=== PATIENT | male | born 1935 | race Caucasian/White ===

== ENCOUNTER 2016-08-12 08:00 | Outpatient (CLI) | payer MEDICARE | END 2016-08-12 08:01 | disposition home or self-care (01) | DX: R06.09 Other forms of dyspnea (principal); I10 Essential (primary) hypertension; J44.9 Chronic obstructive pulmonary disease, unspecified; E78.5 Hyperlipidemia, unspecified ==

== ENCOUNTER 2016-12-10 11:28 | Outpatient (CLI) | payer MEDICARE | END 2016-12-10 11:29 | disposition home or self-care (01) | DX: K62.5 Hemorrhage of anus and rectum (principal) ==

== ENCOUNTER 2017-01-30 15:15 | Outpatient (CLI) | payer MEDICARE ==
--- NOTE | 2017-02-01 20:47 | CONSULTATION NOTE ---
DATE OF CONSULTATION: 01/30/2017 00:00:00 REQUESTING PROVIDER: Lamberto Marcum MD. TIME OF VISIT: [id number]. TOPIC: Initial palliative care consult. Thank you, Dr. Marcum, for asking the palliative care consult service to be involved in the care of your patient. I am asked to provide support for goals of care and symptom management. History obtained from medical records, as well as the patient. BRIEF HISTORY OF PRESENT ILLNESS: This is a charles 81-year-old gentleman who presents with advanced end-stage COPD. He is breathless with any kind of activity or exertion and at times breathless at rest. This is exacerbated by his anxiety and fearfulness regarding his breathlessness. He is on 4 liters at 99%, but with any kind of activity he does desat ambulating about 10-15 feet down into the low 80s. This causes him much distress, though he is not more symptomatic than other increased respiratory effort. He does not get dizzy, faint, or confused with this decrease and if after he walked about 45-60 seconds , only took him about 3 minutes to recover. The patient does recognize he has advanced disease. He is quite anxious that he is looking at limited life expectancy and is hopeful that with palliative care, we can find some tools for him to improve his current quality of life. He also presents with about 2-3 weeks of mid thoracic pain, more on the left side that does increase with deep inhalation. He denies any pain at time of visit. He denies any falls or trauma that might have resulted in thoracic compression fracture, though this does appear somewhat suspicious. Currently, at the time of visit, his pain is a 0/ 10. His other presenting symptom has been intermittent constipation. In December, he did present to [facility] with gross rectal bleeding. With followup with the surgeon, he was found to have internal and external hemorrhoids and severe sigmoid diverticulitis. He is currently managing his constipation much better without any further signs or symptoms of bleeding with daily use of MiraLax. He also presents with other comorbidities of CHF, hypertension, hyperlipidemia, GERD, pulmonary hypertension, was shown in November to have some interstitial lung disease on CT, and ejection fraction of 60-65%. PAST MEDICAL HISTORY: Includes 4 hernias with hernia repair, AAA with repair in the last few years. He was recently worked up with Cardiology with a negative outcome. He has had in the past a left leg DVT, prostate cancer with a prostatectomy with residual incontinence, and he has a thoracic ascending aneurysm, which is currently stable. He also has currently a hiatal hernia. SYMPTOM BURDEN: Does include the intermittent pain, though 0/10 currently. He does get fatigued and tired with his breathlessness. He denies any nausea. His appetite has been good. He has had no weight loss. He does have some intermittent depressive symptoms, but presents more with high anxiety and can recognize this and perceives his quality of life as quite poor. ALLERGIES: INCLUDE HEPARIN. CURRENT MEDICATION LIST Includes 1. Albuterol sulfate 0.083% nebulizer q.4h. p.r.n. wheezing. 2. Lisinopril 5 mg daily. 3. Stiolto Respimat 2.5/2.5 mcg actuation inhale aerosol, inhale 2 puffs by mouth daily. 4. QVAR 80 mcg inhale 1 actuation twice daily. 5. Aspirin 81 mg daily. 6. Prednisone 10 mg daily. 7. Lasix 20 mg daily. 8. Recently finished his Zithromax for sinus symptoms. 9. Fluticasone propionate 50 mcg/ACT 1 spray each nostril twice daily. 10. Aspirin 81 mg daily. 11. Aleve 220 mg intermittently for thoracic back pain. 12. Multivitamin daily. 13. Prilosec meio-bkw-gdvsegk 20 mg daily. 14. Saline nose spray. CODE STATUS: THE PATIENT DOES NOT HAVE ANY ADVANCED CARE DIRECTIVES. HE WOULD WANT YU, HIS DAUGHTER, TO BE THE MEDICAL DPOA AFTER HIS , SHERRY. I DID INTRODUCE THE POLST. HE DOES EXPRESS WISHES FOR DO NOT ATTEMPT RESUSCITATION , BUT THIS FORM WAS JUST INTRODUCED AND WE WILL FINISH THIS AT OUR NEXT VISIT. BRIEF SOCIAL HISTORY: The patient lives with his , Sherry. They live in a retired community. The daughter provides him quite a bit of support, as well as their neighbors. 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 He did have environmental exposure including asbestos. His , herself, has some health problems. They are quite devoted to each other, have been over 42 years, and have a blended family with 8 daughters and 2 sons. He is not connected to any spiritual community at this point in time. He does express sadness having given up many activities that bring him lorene such as golfing, bowling, and most recently grocery shopping. He still likes to go to the [employer], this is becoming more difficult. Marital status: Currently to Sherry for 42 years. His use of alcohol is rare, a glass of wine. Use of tobacco: Quit smoking in 2011. FAMILY HISTORY: Includes his father of a heart attack at 70. Mother of CHF at age 73 and a brother in his 50s of a heart attack. PERFORMANCE STATUS: The patient has experienced a significant decline in functional status. This is attributed to his dyspnea. He was able to go shopping about 1 month ago in [employer]. Six months ago, he was able to ambulate around with a walker. Now, he is mostly home bound. He occasionally drives, but is unable to tolerate being out for long periods of time because of breathlessness and remains essentially homebound. I would put his palliative care performance status at 70%. REVIEW OF SYSTEMS CONSTITUTIONAL: Overall, the patient does present with feeling fatigued and depressed, as well as frustrated by his current situation. EYES: He does wears glasses. ENT: He has some mild hearing loss. CARDIOVASCULAR: Denies chest pain or swelling in his feet. RESPIRATORY: As noted above. Does feel often he cannot get enough air. He wears his oxygen at 4 liters, occasionally raises it when he gets more short of breath. He has been oxygen dependent for several years now. GASTROINTESTINAL: History of constipation. Currently, his Miralax is giving him relief. He has had no overt signs or symptoms of bleeding. GENITOURINARY: He has had some incontinence since his prostate surgery at age 63. He does have some urgency, is up a couple of times a night. MUSCULOSKELETAL: He overall has some weakness, some mild osteoarthritis. SKIN: Denies problems. NEUROLOGIC: Denies headache or dizziness, numbness or tingling. PSYCHIATRIC: Reports depression and anxiety. ENDOCRINE: No history of diabetes or hypothyroidism. HEMATOLOGIC/IMMUNOLOGIC: Recently treated for a sinus infection. Has not been in and out frequently with pneumonia or exacerbations. His last counts noted in the chart in 12/2016, his WBC was 9.2, RBC 4.1, hemoglobin 13.2, and hematocrit of 41. His protein is 7.3. Liver enzymes were normal. PHYSICAL EXAMINATION GENERAL APPEARANCE: He is making good eye contact. His voice is modulated, he does appear quite anxious. EYES: Normal on inspection. ENT: Mucous membranes are moist, no signs or symptoms of candidiasis. NECK: Trachea midline. No JVD. RESPIRATORY: His breath sounds are very diminished throughout, particularly in the bases, left greater than right. CARDIOVASCULAR: He does have regular rate and rhythm 105, temperature 98.6. O2 saturation is 99% on room air, blood pressure 138/78. His weight is 180. ABDOMEN: Soft. Bowel tones normal. SKIN: Color good. EXTREMITIES: No lower extremity edema noted. PALLIATIVE CARE DISCUSSION: Who is present, myself and his , Sherry. We did discuss his current understanding of his illness is he is deteriorating pretty quickly. He is quite anxious about this. He understands there is not much more to interfere with his disease process and is hoping to be able to "stay around for a while." His also has a serious illness of neurologic origin and are trying to be supportive of each other. Currently does not have any advanced directive. He is hopeful to be able to regain some functional status and activity tolerance, though recognizes that this is somewhat limited. His strengths come from his and family, has some social support, but family is somewhat scattered. IMPRESSION: This is an 81-year-old gentleman who presents with advanced chronic obstructive pulmonary disease with high symptom burden including disabling dyspnea, is resulting in decreased activity tolerance and the patient's homebound status, as well as high anxiety and depression. The patient most likely has a limited life prognosis and is quite anxious about this. Will continue to follow for further decline. His goal is to improve and further define his advanced care directives. RECOMMENDATIONS/COUNSELING DONE 1. Dyspnea. This is multifactorial in origin. It is impacted by his anxiety, as well as his underlying disease process. He is maximized out on his pulmonary medications. I did introduce the use of morphine as a tool to manage, particularly prior to activity, his respiratory distress. Counseling and teaching were done with both the patient and , starting with opiate naive dose, which should be 0.25 mL to 5 mg every 4 hours, instructed to use prior to activity and to be able to better tolerate activity. Reviewed side effects including sedation and constipation. Instructed to increase his bowel medications as needed and counseling regarding safety. Did provide 1 mL syringes , demonstrated the amount, a prescription was provided for 30 mL. The patient was encouraged to use it before distress to be able to monitor it results given his high anxiety. The other thing we did, was I did provide him some cognitive behavioral therapy. I had him take off his oxygen and sit with me and relax. His oxygen only dropped to about 90. He did not feel confused, dizzy, or distressed. I tried to help him reframe, that watching the numbers, in particularly with his activity, dropping that he does have time if he just paces himself, his body will recover and that he has probably adapted to this long-term. He gets really quite anxious and distressed when he is changing bottles or his oxygen cuts off. I was able to give him some feedback regarding helping him manage his anxiety around this. In fact, on room air at rest, he only dropped to about 95% after 2 minutes and tolerated it fine with any kind of activity, even on oxygen, though he does desat quite quickly. 2. Constipation. The patient had initiated 1/2 capful of MiraLax daily with good results. Instructions on MiraLax for softening "the mush" and Senna. Was instructed to pick out hand some Senna concentrate 8.6 mg and take 1-2 tabs if he is experiencing constipation for the "push." We did curriculum counselor them for titration of bowel medications and the need to have a regular soft bowel movement on a regular basis and morphine can impact this. 3. Anxiety, multifactorial in origin, certainly exacerbated by his dyspnea. The patient is seriously ill, most likely would meet [facility] criteria currently, though this is in the context of his goals. I will evaluate over the next few visits as far as anticipatory guidance and counseling was done regarding the continuum of care including hospice and the role of palliative care in an attempt to address and allay some anxiety. 4. Advanced care planning. The patient does need to complete a POLST, as well as medical DPOA. I did introduce the POLST and the role of this. He did express wishes to be a DO NOT ATTEMPT RESUSCITATION AND LIMITED INTERVENTIONS. His daughter, Yu, though is very much involved in their care. He will discuss this with her as well. I also provided 5 Wishes to be able to use as a conversation piece to make sure they have covered all of the things that need to be decided, as well as a durable power of medical chief security officer to be able to put this on record. TIME SPENT: 75 minutes with greater than 50% of this done in counseling regarding management of dyspnea, constipation, advanced care planning. Will continue to monitor. 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 ADDENDUM: Call to patient, had tried morphine at 0.25 ml, had helped with back pain, did not notice much improvement in exercise tolerance or breathlessness. No sedation, confusion, or change in balance. Will try at 0.5 ml to see if better control Inst. to call with any questions, concerns, or further inst. needed. Will have PC RN follow up. JOB #: [id number] EXT JOB #:[id number] MALIKA
== END 2017-01-30 15:16 | disposition home or self-care (01) ==
LOC: PC 15:15
PROVIDERS: ATTEND Nurse Practitioner Adult Health
DX: Z51.5 Encounter for palliative care (principal); R06.00 Dyspnea, unspecified; K59.00 Constipation, unspecified; F41.9 Anxiety disorder, unspecified; J44.9 Chronic obstructive pulmonary disease, unspecified; K64.4 Residual hemorrhoidal skin tags; K64.8 Other hemorrhoids; I50.9 Heart failure, unspecified; I10 Essential (primary) hypertension; E78.5 Hyperlipidemia, unspecified; K21.9 Gastro-esophageal reflux disease without esophagitis; I27.2 Other secondary pulmonary hypertension; Z86.718 Personal history of other venous thrombosis and embolism; Z85.46 Personal history of malignant neoplasm of prostate; R32 Unspecified urinary incontinence; I71.2 Thoracic aortic aneurysm, without rupture; K44.9 Diaphragmatic hernia without obstruction or gangrene; Z79.82 Long term (current) use of aspirin; Z79.52 Long term (current) use of systemic steroids; Z79.51 Long term (current) use of inhaled steroids; Z77.090 Contact with and (suspected) exposure to asbestos; Z87.891 Personal history of nicotine dependence; F32.9 Major depressive disorder, single episode, unspecified; R53.1 Weakness
CPT/HCPCS: 99345

== ENCOUNTER 2017-02-18 11:30 | Outpatient (CLI) | payer MEDICARE | END 2017-02-18 11:31 | disposition home or self-care (01) | LOC: PC 11:30 | PROVIDERS: ATTEND Nurse Practitioner Adult Health | DX: Z51.5 Encounter for palliative care (principal); J18.9 Pneumonia, unspecified organism; R06.00 Dyspnea, unspecified; K59.00 Constipation, unspecified; Z79.891 Long term (current) use of opiate analgesic; J44.9 Chronic obstructive pulmonary disease, unspecified; Z99.81 Dependence on supplemental oxygen; R05 Cough; Z79.51 Long term (current) use of inhaled steroids; Z79.52 Long term (current) use of systemic steroids; Z79.82 Long term (current) use of aspirin; R53.1 Weakness; R07.81 Pleurodynia; R35.0 Frequency of micturition; R32 Unspecified urinary incontinence; F32.9 Major depressive disorder, single episode, unspecified; F41.9 Anxiety disorder, unspecified | CPT/HCPCS: 99350 ==

== ENCOUNTER 2017-02-25 16:57 | Outpatient (CLI) | payer MEDICARE ==
--- NOTE | 2017-02-25 20:50 | PROVIDER PROGRESS NOTE ---
Palliative Care Follow Up - Referral Referring Provider: Dr. Marcum Time of Visit: Advanced COPD Referral setting: Home (It is a taxing and considerable effort for the patient to leave the home secondary to dyspnea.) - Information Sources History obtained from: Patient, Family Exam limitations: No limitations - History of Present Illness Update Brief HPI Update: This is a charles 82 year old man with endstage COPD, who had worsening pulmonary function, increase dypsnea, new abnormal lung sounds with increase mucous production and severe fatigue. Started on levoflaxin, had severe myalgias , had taken two doses, had also increased his prednisone to 30 mg daily. Has recovered from the side effects of AB, and has continued to feel better with less mucous, benefiting from increased Prednisone, and fatigue better. Using the morphine 20 mg/ml 0.4 ml 4 x a day with better relief of pain, anxiety and dyspnea. Using albuterol neb 3 x a day. Please see complete history 01/30. He is pleased with the improvement, a big family reunion is planned this weekend with 6 daughters! Very hopeful will not get too overtired and enjoy the activities. Social History - Living Situation Living arrangement: At home Living Situation: With spouse/s.o. (limited as well secondary to health issues) Medications/Allergies - Medications Home Medications: Ambulatory Orders Medication Instructions Recorded Confirmed Albuterol 3 ml NEB Q4HR PRN 02/06/17 02/18/17 Aspirin [Adult Low Dose Aspirin EC] 81 mg PO DAILY 02/06/17 02/18/17 Beclomethasone 80 Mcg [Qvar 80] 1 puffs BID 02/06/17 02/18/17 Fluticasone Propionate [Flovent 50 mcg IH BID 02/06/17 02/18/17 Diskus] Furosemide [Lasix] 20 mg PO DAILY 02/06/17 02/18/17 Lisinopril 5 mg PO DAILY 02/06/17 02/18/17 Morphine Sulfate [Morphine Sulf 0.25 - 0.5 ml PO Q4HR PRN 02/06/17 02/18/17 Oral (Roxanol)] Multivitamin [Multiple Vitamins] 1 each PO DAILY 02/06/17 02/18/17 Omeprazole [PriLOSEC] 20 mg PO DAILY 02/06/17 02/18/17 Polyethylene Glycol 3350 [Miralax] 17 gm PO DAILY PRN 02/06/17 02/18/17 Prednisone 30 mg PO DAILY 02/06/17 02/18/17 Sennosides [Senna] 1 - 2 tab PO DAILY PRN 02/06/17 02/18/17 Sodium Chloride [Saline Mist] 1 spray ADAIR PRN PRN 02/06/17 02/25/17 Tiotropium Br/Olodaterol HCl 2 puffs PO DAILY 02/06/17 02/25/17 [Stiolto Respimat Inhal [place]] - Allergies Allergies/Adverse Reactions: Allergies Allergy/AdvReac Type Severity Reaction Status Date / Time heparin Allergy Unknown Unknown Verified 02/18/17 18:23 levofloxacin AdvReac Severe Cramps Verified 02/25/17 21:12 Review of Systems - Constitutional Constitutional: reports: Fatigue, Weakness - Eyes Eyes: reports: Corrective lenses. denies: Blurred vision - Ears, Nose & Throat Ears, Nose & Throat: reports: Hearing loss, Hearing aids, Nasal congestion ( improved) - Cardiovascular Cariovascular: reports: Exertional dyspnea, Decr. exercise tolerance. denies: Chest pain - Respiratory Respiratory: reports: Cough, Sputum production (less mucous), SOB at rest, SOB with exertion, Pleuritic pain (improved with morphine) - Gastrointestinal Gastrointestinal: reports: Nausea, Reflux/heartburn. denies: Constipation - Genitourinary Genitourinary: reports: Frequency. denies: Dysuria - Musculoskeletal Musculoskeletal: reports: Muscle pain (had severe episode with levo, now improved), Muscle weakness - Integumentary Integumentary: reports: Dryness - Neurological Neurological: reports: General weakness - Psychiatric Psychiatric: reports: Anxiety - Endocrine Endocrine: reports: Other (no issues) - Hematologic/Lymphatic Hematologic/Lymphatic: reports: Anemia, Bruising - All Other Systems All Other Systems: reports: Reviewed and negative Physical Examination - Vital Signs Temperature: 97.5 C Pulse Rate: 96 Respiratory Rate: 24 O2 Saturation: 95 Blood Pressure: 132/72 - Physical Exam General Appearance: positive: Alert Eyes Bilateral: positive: Normal inspection ENT: positive: No signs of dehydration Neck: positive: Trachea midline. negative: Lymphadenopathy (R), Lymphadenopathy (L) Respiratory: positive: Other (severely diminished throughout). negative: Wheezes, Rales, Rhonchi Cardiovascular: positive: Regular rate & rhythm Abdomen: positive: No distention Skin: positive: Dryness Extremities: positive: Pedal edema (slight pedal edema left leg) Neurologic/Psychiatric: positive: Oriented x3 Palliative Care - POLST Patient has POLST: Yes POLST Status: DNR, Comfort Measures Pain: Pain improved, Location (right thoracic area), Severity (controlled) Drowsiness: None Nausea: None Anxiety: Mild (1-3) Dyspnea: Moderate (4-6) Anorexia: None Insomnia: Sleeps well Constipation: Yes, Opoid induced, Managed Feelings of wellbeing/Perceived Quality of Life: Improved Performance Status: Patient still limited, though is feeling would like to try driving again. does not drive, he usually just does driving and sits in car, his goal is to be able to get out of house. Tolerates any activity poorly, only able to walk about 10-15 feet before hypoxic and breathless. Feeling less distress with the MS - Palliative Care Discussion: Surrogate decision maker [Laura his , DPOA paperwork copy for records. POLST rewritten so no cross throughs. Posted on refridgerator, still satisfied with goals and choices. Very much encouraged is feeling better, aware of seriousness of condition, hoping for more time, family reunion planned. Impression and Recommendations - Palliative Care Impression: This is a charles and anxious 82 year old gentleman with endstage COPD, symptom burden improving. Responding well to the increased Prednisone, will leave at current dosing to be able to enjoy family and company. Pain controlled, and starting to be able to tolerate a little bit more activity though limited. Recommendations/Counseling Done: 1. Community Acquired Pneumonia vs exacerbation, responded even to the two doses of levaquin with decreased mucous, did not develop fever, had discussed changing out AB but declined. Responding well to increased Prednisone. Will continue until next visit in 2 weeks, then decrease slowly by 5 mg a week to baseline 10 mg. Weighing benefits and burdens, patient very much wants to be able to be "up" with family visiting and is hopeful can maintain even in the short term. Has improved appetite as well. 2. Pleuritic pain, currently controlled with MS. 3. Constipation, titrating medications in response appropriately. No further hemmorhoidal pain or bleeding. 4. Dyspnea. Patient anxious to drive, counseling on increasing activity slowly, trial car trip with daughters this weekend. 4. Advanced Care Planning. DPOA/POLST completed. Aware very fragile, currently improving, will transition to hospice if declines, but feeling much better and hopeful curently. Time Spent: 45 minutes with greater than 50% done in counseling on symptom management, pacing of activities, safety issues with opioid medication disposal.
== END 2017-02-25 16:58 | disposition home or self-care (01) ==
LOC: PC 16:57
PROVIDERS: ATTEND Nurse Practitioner Adult Health
DX: Z51.5 Encounter for palliative care (principal); R07.81 Pleurodynia; K59.00 Constipation, unspecified; Z79.891 Long term (current) use of opiate analgesic; R06.00 Dyspnea, unspecified; R53.83 Other fatigue; Z79.52 Long term (current) use of systemic steroids; Z79.82 Long term (current) use of aspirin; Z79.51 Long term (current) use of inhaled steroids; R53.1 Weakness; R05 Cough; F41.9 Anxiety disorder, unspecified; R60.9 Edema, unspecified; Z66 Do not resuscitate
CPT/HCPCS: 99349

== ENCOUNTER 2017-03-10 13:21 | Outpatient (CLI) | payer MEDICARE ==
--- NOTE | 2017-03-10 13:31 | PROVIDER PROGRESS NOTE ---
Palliative Care Follow Up - Referral Referring Provider: Dr Marcum Time of Visit: 11:00 Referral setting: Home (It is a taxing and considerable effort for the patient to leave home secondary to significant dyspnea.) Referral Reason: Advanced COPD - Information Sources History obtained from: Patient, Family Exam limitations: No limitations - History of Present Illness Update Brief HPI Update: This is a charles 82-year-old man with advanced, end-stage COPD. He is breathless with any kind of activity or exertion and at times breathless at rest , and he experiences anxiety regarding his breathlessness reduced functionality. He states he is not doing well today, explaining he is breathless just from getting up from his armchair and moving into the kitchen for this visit. And then he admits that actually his breathlessness has been stable, and in fact he has been sleeping very well for the past week, which he attributes to the morphine. He also noted he is no longer producing phlegm. He has been using morphine 0.4ml four times daily, and along with the 30mg of prednisone its been stabilizing his breathlessness. It had been tentatively planned to start titrating down the prednisone by 5mg weekly until it reached 10mg, but the patient does not want to do so at this time, he feels anxious at the prospect of decreasing it. We agreed to revisit that at the next visit. His large family (8 sons, 2 daughters with their children and grandchildren) were all here recently and had a wonderful time. The patient enjoyed a big family birthday democrat and was spoiled with TLC by pedicures and other fun activities. He did not end up being driven around by any of his children as had been discussed, but he did drive once himself, taking his on an errand. It was quite fatiguing and required that he rest on the way to the garage, in the garage, and then again once he was back home, from the garage back in the house. During this visit O2 sats are 95% while at rest on O2, but dropped to 76% after walking 15 feet to the sink and preparing coffee. It took 2.5 minutes for him to recuperate. Last week he had no bowel movement for 3 days, and spoke with RN in this office. We increased Miralax to 1 capful daily, increased Senna to 2 tabs BID, and instructed him to use Dulcolax suppository once. He is back to having a soft BM daily and notices he has more gas. Social History - Living Situation Living arrangement: At home Living Situation: With spouse/s.o. (Large extended family living in other states ; one daughter lives nearby) Medications/Allergies - Medications Home Medications: Ambulatory Orders Medication Instructions Recorded Confirmed Albuterol 3 ml NEB Q4HR PRN 02/06/17 03/10/17 Aspirin [Adult Low Dose Aspirin EC] 81 mg PO DAILY 02/06/17 03/10/17 Beclomethasone 80 Mcg [Qvar 80] 1 puffs BID 02/06/17 03/10/17 Fluticasone Propionate [Flovent 50 mcg IH BID 02/06/17 03/10/17 Diskus] Furosemide [Lasix] 20 mg PO DAILY 02/06/17 03/10/17 Lisinopril 5 mg PO DAILY 02/06/17 03/10/17 Morphine Sulfate [Morphine Sulf 0.25 - 0.5 ml PO Q4HR PRN 02/06/17 03/10/17 Oral (Roxanol)] Multivitamin [Multiple Vitamins] 1 each PO DAILY 02/06/17 03/10/17 Omeprazole [PriLOSEC] 20 mg PO DAILY 02/06/17 03/10/17 Polyethylene Glycol 3350 [Miralax] 17 gm PO DAILY PRN 02/06/17 03/10/17 Prednisone 30 mg PO DAILY 02/06/17 03/10/17 Sennosides [Senna] 1 - 2 tab PO PRN MDD Up to BID 02/06/17 02/18/17 Sodium Chloride [Saline Mist] 1 spray ADAIR PRN PRN 02/06/17 03/10/17 Tiotropium Br/Olodaterol HCl 2 puffs PO DAILY 02/06/17 03/10/17 [Stiolto Respimat Inhal [place]] - Allergies Allergies/Adverse Reactions: Allergies Allergy/AdvReac Type Severity Reaction Status Date / Time heparin Allergy Unknown Unknown Verified 02/18/17 18:23 levofloxacin AdvReac Severe Cramps Verified 02/25/17 21:12 Review of Systems - Constitutional Constitutional: denies: Fever, Chills, Poor appetite - Cardiovascular Cariovascular: denies: Chest pain - Respiratory Respiratory: reports: SOB with exertion. denies: Sputum production (No more phlegm) - Gastrointestinal Gastrointestinal: reports: Constipation (No BM last week x 3 days, so increased bowel meds. Now soft having BMs daily) - Genitourinary Genitourinary: denies: Dysuria, Frequency, Urgency - Psychiatric Psychiatric: reports: Anxiety (mild) Physical Examination - Vital Signs Temperature: 97.3 C Pulse Rate: 88 O2 Saturation: 95 Blood Pressure: 120/70 - Physical Exam General Appearance: positive: Alert Eyes Bilateral: positive: EOMI, No lid inflammation, Conjunctivae nml ENT: positive: No signs of dehydration Neck: positive: Trachea midline Respiratory: positive: Chest non-tender, No respiratory distress. negative: Breath sounds nml (diminished in all lobes) Skin: positive: Dryness Extremities: positive: Pedal edema (Mild) Neurologic/Psychiatric: positive: Oriented x3 Palliative Care - POLST Patient has POLST: Yes POLST Status: DNR, Limited Interventions Pain: No pain, Pain unchanged Drowsiness: None Nausea: None Anxiety: Mild (1-3) Dyspnea: Moderate (4-6) Anorexia: None Insomnia: Sleeps well Constipation: Yes, Opoid induced, Managed, Comment (Increased bowel meds last week after no BM x 3 days) Performance Status: Current level of functioning: Still limited with continued breathlessness with any exertion. Is able to ambulate with walker but requires frequent stops to rest. He attempted driving himself once and was obligated to take numerous rests while walking to and from garage, and also during the drive. So he remains homebound because of breathlessness. Palliative Care Performance Status: 60%. - Palliative Care Discussion: Who is present: The patient, myself, and his spouse, Laura. Patient/Family understanding of the illness: Patient and spouse understand this is a serious disease without cure and that eventually he will be transitioning to Hospice as the disease advances. Most important goals: Patient and his are in agreement that he does not want be hospitalized, he wants to continue to remain at home and wants to eventually at home, with Hospice care. Patient/family concerns: Patient would like to be able to leave the house, but at the same time, if he has to remain inside because of dyspnea, he is happy to be at home. He tends to feel anxious about his condition, whether breathlessness or constipation, and appreciates the support and advice from palliative care. His also has limitations with a neurological disease but states it is going well for her. She has a network of friends for support, she goes with them for a girls day at the [employer] every week. They were both very happy about the recent family reunion in their home. Family Conference: None planned at present but agreed to meet again next week for monitoring symptom burden and refilling scripts for prednisone and morphine. Impression and Recommendations - Palliative Care Impression: This is a charles 82-year-old gentleman with endstage COPD who exhibits anxiety related to his disease and reduced functionality. Symptom burden has stabilized : breathlessness is improved with morphine and prednisone and constipation is controlled with an increase in bowel medications. Recommendations/Counseling Done: 1. Dyspnea: Continue morphine 0.4ml four times daily and keep prednisone at 30mg at present. Will return next week for symptom monitoring and new scripts for both medications. Consider titrating prednisone at that time. Counselled to not drive car himself due to his severe breathlessness with exertion. Patient said he agreed but I am not certain that he wont try again. 2. Constipation: Acute x 3 days last week. Continue Miralax 1 capful daily and use senna 1-2 tabs up to BID. Use Dulcolax suppository as needed. 3. Advanced care planning: He will want to eventually transition to Hospice but does not feel ready at present. They are satisfied with palliative care support. Time Spent: 30 minutes with greater than 50% of this done in counseling and symptom management, plus advanced care planning with some anticipatory guidance.
== END 2017-03-10 13:22 | disposition home or self-care (01) ==
LOC: PC 13:21
PROVIDERS: ATTEND Nurse Practitioner
DX: Z51.5 Encounter for palliative care (principal); R06.00 Dyspnea, unspecified; K59.00 Constipation, unspecified; J44.9 Chronic obstructive pulmonary disease, unspecified; Z79.891 Long term (current) use of opiate analgesic; Z79.52 Long term (current) use of systemic steroids; Z79.82 Long term (current) use of aspirin; Z79.51 Long term (current) use of inhaled steroids; F41.9 Anxiety disorder, unspecified; Z66 Do not resuscitate
CPT/HCPCS: 99348

== ENCOUNTER 2017-03-17 14:00 | Outpatient (CLI) | payer MEDICARE ==
--- NOTE | 2017-03-17 17:11 | PROVIDER PROGRESS NOTE ---
Palliative Care Follow Up - Referral Referring Provider: Dr. Marcum Time of Visit: [id number] Referral setting: Home (Patient seen in home setting secondary to considerable and taxing effort to leave the home related to severe dyspnea) Referral Reason: End Stage COPD - Information Sources History obtained from: Patient, Family () Exam limitations: Clinical condition (Patient presents with severe anxiety, has not slept for several days and perceives coping poorly) - History of Present Illness Update Brief HPI Update: This is a charles 82 year old man with endstage COPD, whom the service has been following the last several weeks. He did have small respite from symptoms and perceived improved quality of life introduction of morphine and increased prednisone, currently on 30 mg daily. He was able to participate in family reunion, and was doing fairly well until end of last week. Has not slept well for several nights, reports back pain has increased and severely exacerbated with coughing so has been working really "hard" not to cough. Laying down makes it worse, thus has not laid down or slept well last few days. Presents with escalating anxiety. No fever or chills, using nebs TID, started mucinex as directed emanations analysis technician this am, cough loose and rolling. No wheezing, rhonchi, or crackles, very diminished throughout. Reports back pain as severe. Patient reports hypoxia, on 4 liters "hangs our about 90%" but with any activity gets breathless, and desats into the 80's, then with prolonged activity i.e. ambulate into the bathroom drops to 70% and takes about 5-10 minutes to recover back into the 90's. No other triggers noted other than poor air quality, but inside mostly. Social History - Living Situation Living arrangement: At home Living Situation: With spouse/s.o. (spouse uses walker, appears fatigued and worried.) Medications/Allergies - Medications Home Medications: Ambulatory Orders Medication Instructions Recorded Confirmed Albuterol 3 ml NEB Q4HR PRN 02/06/17 03/10/17 Aspirin [Adult Low Dose Aspirin EC] 81 mg PO DAILY 02/06/17 03/10/17 Beclomethasone 80 Mcg [Qvar 80] 1 puffs BID 02/06/17 03/10/17 Fluticasone Propionate [Flovent 50 mcg IH BID 02/06/17 03/10/17 Diskus] Furosemide [Lasix] 20 mg PO DAILY 02/06/17 03/10/17 Lisinopril 5 mg PO DAILY 02/06/17 03/10/17 Morphine Sulfate [Morphine Sulf 0.25 - 0.5 ml PO Q4HR PRN 02/06/17 03/10/17 Oral (Roxanol)] Multivitamin [Multiple Vitamins] 1 each PO DAILY 02/06/17 03/10/17 Omeprazole [PriLOSEC] 20 mg PO DAILY 02/06/17 03/10/17 Polyethylene Glycol 3350 [Miralax] 17 gm PO DAILY PRN 02/06/17 03/10/17 Prednisone 30 mg PO DAILY 02/06/17 03/10/17 Sennosides [Senna] 1 - 2 tab PO PRN MDD Up to BID 02/06/17 02/18/17 Sodium Chloride [Saline Mist] 1 spray ADAIR PRN PRN 02/06/17 03/10/17 Tiotropium Br/Olodaterol HCl 2 puffs PO DAILY 02/06/17 03/10/17 [Stiolto Respimat Inhal [place]] - Allergies Allergies/Adverse Reactions: Allergies Allergy/AdvReac Type Severity Reaction Status Date / Time heparin Allergy Unknown Unknown Verified 02/18/17 18:23 levofloxacin AdvReac Severe Cramps Verified 02/25/17 21:12 Review of Systems - Constitutional Constitutional: reports: Fatigue, Weakness. denies: Fever, Chills, Diaphoresis - Eyes Eyes: reports: Corrective lenses - Ears, Nose & Throat Ears, Nose & Throat: reports: Hearing loss, Hearing aids, Other (dentures) - Cardiovascular Cariovascular: reports: Exertional dyspnea, Decr. exercise tolerance, Orthopnea. denies: Chest pain - Respiratory Respiratory: reports: Cough, Sputum production (Patient complaining of phelgm that cannot "bring up", sticky. Afraid of back pain and so not clearing secretions. Feels like choking when lay down), SOB at rest, SOB with exertion - Gastrointestinal Gastrointestinal: denies: Abdominal pain, Constipation, Black stools, Nausea - Genitourinary Genitourinary: reports: Frequency - Musculoskeletal Musculoskeletal: reports: Back pain (mid thoracic, worsens with coughing, had improved originally, now exacerbated again), Muscle weakness - Integumentary Integumentary: reports: Dryness, Other (complians of sore left ear from tubing) - Neurological Neurological: reports: General weakness - Psychiatric Psychiatric: reports: Depression (Feeling very discouraged with decline in last week), Anxiety (presents severely anxious, unable to sleep related to pain/cough /anxiety not able to lay down) - Endocrine Endocrine: denies: Intolerance to cold, Intolerance to heat - Hematologic/Lymphatic Hematologic/Lymphatic: reports: Bruising - All Other Systems All Other Systems: reports: Reviewed and negative Physical Examination - Vital Signs Temperature: 97.2 C Pulse Rate: 104 Respiratory Rate: 22 O2 Saturation: 93 (see below) Blood Pressure: 112/82 - Physical Exam General Appearance: positive: Moderate distress, Anxious Eyes Bilateral: positive: Normal inspection ENT: positive: No signs of dehydration, Dry mucous membranes. negative: Oral lesions Neck: positive: No JVD, Trachea midline Respiratory: positive: Other (moist rolling cough, upper airway but no rhonchi; very diminished throughout; sats at rest 93%; ambulation down in 80"s; takes 5+ minutes for recovery; patient reports with prolonged activity drops in 70's). negative: Wheezes, Rales, Rhonchi Cardiovascular: positive: Regular rate & rhythm Abdomen: positive: Nml bowel sounds, Other (rounded) Skin: positive: Pallor, Dryness, Bruising, Other (stage II decub noted left ear where tubing sits; no s/s infection; sore to touch; left elbow with 1 cm eschar and pinkened, uses to "scoot" in bed) Extremities: positive: No pedal edema Neurologic/Psychiatric: positive: Oriented x3, Weakness, Depressed mood/affect Palliative Care - POLST Patient has POLST: Yes POLST Status: DNR, Comfort Measures Pain: Pain worsening, Location (mid thoracic back area; 0 at rest but severe with coughing; anticipates pain now so escalating; some relief with ms but still sharp and shooting; worsened in intensity) Drowsiness: Mild (1-3) ( notes some relaxation and drowsiness with morphine but awake and not confused) Nausea: None Anxiety: Severe (7-10) Dyspnea: Severe (7-10), Comment (unable to find any position of relief) Anorexia: Mild (1-3) (reports good intake AM and noon; less appetite at dinner) Insomnia: Sleeps poorly (has slept poorly for 3 nights; unable to lay back because of "phelgm") Constipation: Yes, Opoid induced, Managed Feelings of wellbeing/Perceived Quality of Life: Worsening Performance Status: Patient feels worsening, more inclined to stay in recliner, less ambulation, more difficult to get around PPS 40% - Palliative Care Discussion: Patient distressed with increasing symptom burden, written plan to address. Very adament that does not want to go to hospital, was hoping for more time. Had met goal of family "reunion" but had hoped for more endurance and return to level of functioning. Worried about Laura, and what and who to call if needs assistance. Discussed has POLST if distress not relieved with tools can get assistance from 911, especially if falls or Laura overwhelmed. Introduced given his concerns and decline if would be open at this time for transition to hospice. Reviewed hospice services supports, limitation, and goals. Both he and Laura feel at this time it would be a level of support that would be welcome. Reviewed hoping for the best, with increasing ms/getting some rest/more support to improve, but being prepared for the worst for continued decline. Daughter Alecia who is main support, called later with questions and reviewed goals and services. Impression and Recommendations - Palliative Care Impression: This is a 82 year old gentleman with severe end stage COPD with worsening symptom burden of anxiety, depression, dyspnea, and functional decline. Goals to focus on comfort, relief of suffering, not return to hospital and a at home congruent with transitioning to hospice. Patient with dyspnea at rest; tachycardia; functional decline with pps 40%; and maximal management of disease. Recommendations/Counseling Done: 1. Dyspnea, worsening. No fever, chills, but having more "phelgm" not moving because afraid to cough related to the exacerbation of back pain. Using 0.4 ml ms 20 mg/ml about 4-5 times a day with some relief but short lived of 1 hour. Instructed to use 0.5 ml/10 mg every 2-3 hours and track, goal would be to add long acting morphine when get base needed for adequate relief. Inst to use 0.7 ml at bedtime; and leave dose at bedside. very anxious patient not over do. Spent considerable time reviewing use of "hospital" bed in bedroom for proper positioning at night, suspect sitting flat against wall adding to back pain. Will leave Prednisone at 30 mg for now. 2. Acute back pain, suspect thoracic vertebral fracture and/or pulled muscle. Will use MS more aggressively for relief, inst. to add heat, and reviewed positioning. 3. Anxiety. Would like to add xanax, but given frailty of situation, will defer to hospice admit, patient high risk for falls, both easily overwhelmed, may help to titrate down prednisone as well. 4. Insomina. Related to pain/dyspnea, will evaluate current plan before add more medications at this time. 5. 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 Call to [employer] to send foam protectors, to be delivered tomorrow [employer]. 6. Advanced Care Planning. Patient and family ready to transition for hospice support. Call to PCP for follow up regarding referral. Education on hospice to patient, , and granddaughter present at end of visit. Daughter in follow up. Time Spent: 75 minutes with greater than 50% of this done in counseling for pain/dyspnea/ goals of care and anticipatory guidance, coordination of supplies with [facility] and facilitate hospice referral.
== END 2017-03-17 14:01 | disposition home or self-care (01) ==
LOC: PC 14:00
PROVIDERS: ATTEND Nurse Practitioner Adult Health
DX: Z51.5 Encounter for palliative care (principal); R06.00 Dyspnea, unspecified; M54.9 Dorsalgia, unspecified; F41.9 Anxiety disorder, unspecified; G47.00 Insomnia, unspecified; L89.819 Pressure ulcer of head, unspecified stage; J44.9 Chronic obstructive pulmonary disease, unspecified; R05 Cough; R09.02 Hypoxemia; Z79.82 Long term (current) use of aspirin; Z79.891 Long term (current) use of opiate analgesic; Z79.51 Long term (current) use of inhaled steroids; Z79.52 Long term (current) use of systemic steroids; R53.1 Weakness; R35.0 Frequency of micturition; F32.9 Major depressive disorder, single episode, unspecified; Z99.81 Dependence on supplemental oxygen; Z66 Do not resuscitate
CPT/HCPCS: 99350

== ENCOUNTER 2017-03-19 15:45 | Outpatient (CLI) | payer MEDICARE ==
--- NOTE | 2017-03-20 07:53 | PROVIDER PROGRESS NOTE ---
Palliative Care Follow Up - Referral Referring Provider: Dr. 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 He had done better for few weeks, but this last week has been having more difficulty with secretions, back pain, hypoxia, and escalating anxiety. Seen on Thursday with increase in morphine with some improvement, but had another difficult night last night, and most pressing issue is not able to cough up loose secretions. No fever or chills, lungs remain severely diminished through out not changed from baseline, easily desats with any activity. Cough intermittent, patient trys to "force" but is just clearing his throat. Patient very anxious and scared. Prior to my arrival, had used new duoneb once, gave during visit with good results. But had mixed up the q4 hours as the lorazepam, patient had full tab at 10 and again at 1430, sleeping soundly (hasn't slept much for 24 hours) but was able to arouse. Family reports was hallucinating some earlier, is cooperative and appropriate but drifts off. VSS reassured will sleep it off. Social History - Living Situation Living arrangement: At home Living Situation: With spouse/s.o. ( very tired, presents with caregiver fatigue, daughter present for visit.) Medications/Allergies - Medications Home Medications: Ambulatory Orders Medication Instructions Recorded Confirmed Aspirin [Adult Low Dose Aspirin EC] 81 mg PO DAILY 02/06/17 03/10/17 Furosemide [Lasix] 20 mg PO DAILY 02/06/17 03/10/17 Lisinopril 5 mg PO DAILY 02/06/17 03/10/17 Morphine Sulfate [Morphine Sulf 0.5 - 0.7 ml PO Q3HR PRN 02/06/17 03/10/17 Oral (Roxanol)] Multivitamin [Multiple Vitamins] 1 each PO DAILY 02/06/17 03/10/17 Omeprazole [PriLOSEC] 20 mg PO DAILY 02/06/17 03/10/17 Polyethylene Glycol 3350 [Miralax] 8 - 17 gm PO DAILY PRN 02/06/17 03/10/17 Prednisone 30 mg PO DAILY 02/06/17 03/10/17 Sennosides [Senna] 1 - 2 tab PO PRN MDD Up to BID 02/06/17 02/18/17 Sodium Chloride [Saline Mist] 1 spray ADAIR PRN PRN 02/06/17 03/20/17 Guaifenesin [Guaifenesin ER] 1,200 mg PO BID 03/20/17 03/20/17 Ipratropium/Albuterol [Duoneb] 3 ml INH Q4HR 03/20/17 03/20/17 Ipratropium/Albuterol [Duoneb] 3 ml INH Q4HR PRN 03/20/17 03/20/17 Lorazepam 0.25 - 0.5 mg PO Q4HR PRN 03/20/17 03/20/17 - Allergies Allergies/Adverse Reactions: Allergies Allergy/AdvReac Type Severity Reaction Status Date / Time heparin Allergy Unknown Unknown Verified 02/18/17 18:23 levofloxacin AdvReac Severe Cramps Verified 02/25/17 21:12 Review of Systems - Constitutional Constitutional: reports: Fatigue, Weakness - Eyes Eyes: reports: Corrective lenses - Ears, Nose & Throat Ears, Nose & Throat: reports: Hearing loss - Cardiovascular Cariovascular: reports: Decr. exercise tolerance, Orthopnea. denies: Chest pain - Respiratory Respiratory: reports: Cough, SOB at rest, SOB with exertion - Gastrointestinal Gastrointestinal: reports: Bloating, Other (bowels moved this am). denies: Nausea, Reflux/heartburn - Genitourinary Genitourinary: reports: Frequency, Urgency, Incontinence - Musculoskeletal Musculoskeletal: reports: Muscle weakness - Integumentary Integumentary: reports: Dryness - Neurological Neurological: reports: General weakness, Memory problems - Psychiatric Psychiatric: reports: Anxiety, Hallucinations (mild, induced with medication) - Endocrine Endocrine: reports: Intolerance to heat - Hematologic/Lymphatic Hematologic/Lymphatic: reports: Bruising - All Other Systems All Other Systems: reports: Reviewed and negative Physical Examination - Vital Signs Temperature: 97.9 C Pulse Rate: 104 Respiratory Rate: 22 O2 Saturation: 93 (at rest) Blood Pressure: 132/64 - Physical Exam General Appearance: positive: Anxious, Lethargic Eyes Bilateral: positive: Normal inspection ENT: positive: Other (dentures). negative: Oral lesions Neck: positive: No JVD, Trachea midline Respiratory: positive: Other (patient at rest at 4 liters 93%, with ambulation of 50 feet to bathroom down to 78%, took about 5 minutes to recover. Lungs very diminished) Cardiovascular: positive: Tachycardia Abdomen: positive: Other (abdomen taut). negative: Tenderness Skin: positive: Pallor, Dryness Extremities: positive: No pedal edema, Other (Lower extremity weakness, less tolerance of activity more related to dyspnea) Neurologic/Psychiatric: positive: Oriented x3, Other (patient more calm with lorazepam, drifts through visit, had received full tab about an hour prior to arrival) Palliative Care - POLST Patient has POLST: Yes POLST Status: DNR, Comfort Measures Pain: Pain unchanged, Location (mid thoracic, worsens with coughing, morphine helps but anticipates the pain so afraid to cough) Drowsiness: Moderate (4-6) (induced by medication) Nausea: None Anxiety: Moderate (4-6), Comment (seems to have responded well, unable to split pills) Dyspnea: Severe (7-10) Anorexia: Mild (1-3) Insomnia: Sleeps poorly Constipation: Yes, Opoid induced, Managed (bowel movement this am current regimen 1/2 capful Miralax in am, senna 1 tab bid) Feelings of wellbeing/Perceived Quality of Life: Worsening (both patient and family recognize decline, worried about being able to manage the breathlessness) Performance Status: Palliative Care Performance Status [40%]. - Palliative Care Discussion: Patient continues to reiterate goals of not going to the hospital, hoping for less distress better sleep. Reviewed again and addressed questions from family regarding transitioning to hospice. Did review Laura may need more [facility] care support, [employer] can assist with resources in community. POLST on fridge, if overwhelmed, falls, or calls 911 inst. to make sure available to paramedics for goals. Will have access to hospice after tomorrow afternoon, and can use them to help with problem-solving. Impression and Recommendations - Palliative Care Impression: This is 82 year old man with endstage COPD with worsening symptom burden of dyspnea, anxiety, and functional decline. Scheduled to transition to hospice tomorrow, family conference and plan for simplifying regimen and new medications in place. Recommendations/Counseling Done: 1. Dyspnea. Will have while awake use duoneb every fours hours to assist with moving/loosening secretions. Showed and daughter how to set up if patient confused or distressed, moved out of bathroom so doesn't have to walk and sit on toilet in there. Will keep on current dosing of prednisone 30 mg. Using the morphine 0.5 ml four times a day, and dose available at bedtime if needed, can us more often if distress. Also can use duoneb in between scheduled. Inst. written and reviewed with family. Attempted to work with patient more on cough effort, tends to try and "clear" versus cough "phelgm" sounds loose and is swallowing. Inst. to continue with Mucinex, and obtain nonexpired new box. 2. Anxiety. Patient did respond but dose too high to lorazepam. Pills to small to split, showed how to crush and put in liquid an tracee up 6 syringes of 0.25 mg. Told to start with 1/2, if in one hour not effective can give other half. To use as needed, especially at night as gets more anxious. Patient exhausted from last night, informed will probably sleep yet for several hours, reassured . 3. Advanced care planning. Addressed further questions from family regarding hospice, patient appears quite frail and continuing to decline. Will need all instructions written down, in his anxiety "forgets" and argues with . 4. Constipation, controlled on current regimen. Time Spent: 60 minutes with greater than 50% done in counseling and coordination of care regarding symptom management, follow up with hospice and anticipatory guidance
== END 2017-03-19 15:46 | disposition home or self-care (01) ==
LOC: PC 15:45
PROVIDERS: ATTEND Nurse Practitioner Adult Health
DX: Z51.5 Encounter for palliative care (principal); R06.00 Dyspnea, unspecified; F41.9 Anxiety disorder, unspecified; K59.00 Constipation, unspecified; J44.9 Chronic obstructive pulmonary disease, unspecified; M54.9 Dorsalgia, unspecified; R05 Cough; Z79.82 Long term (current) use of aspirin; Z79.891 Long term (current) use of opiate analgesic; Z79.52 Long term (current) use of systemic steroids; R53.1 Weakness; R44.3 Hallucinations, unspecified; R00.0 Tachycardia, unspecified; Z66 Do not resuscitate; H91.90 Unspecified hearing loss, unspecified ear
CPT/HCPCS: 99350

== ENCOUNTER 2017-03-27 00:02 | Outpatient (CLI) | payer MEDICARE | END 2017-03-27 00:03 | disposition home or self-care (01) | LOC: EMS 00:02 | PROVIDERS: ATTEND Surgery ==